=== PATIENT | female | born 1980 | race American Indian/Alaskan Native ===

== ENCOUNTER 2017-09-29 13:20 | Emergency (ER) | payer MEDICAID ==
--- NOTE | 2017-09-29 16:05 | Emergency Department Report ---
Chief Complaint: Neck Pain/Injury Stated Complaint: NECK PAIN - HPI History of Present Illness: 37-year-old female presents to the emergency department with a 2-3 day history of some neck pain, decreased sensation to the left arm and bilateral lower extremities, as well as some left upper arm weakness. Nontraumatic. - ROS Review of Systems: Patient is positive for weakness, numbness, neck pain Patient is negative for chest pain, vision change, shortness of breath, fever - Exam Vital Signs: Vital Signs 09/29/17 13:24 Temperature 98.4 F Pulse Rate 107 H Respiratory 18 Rate Blood Pressure 153/89 O2 Sat by Pulse 99 Oximetry Physical Exam: Patient is awake and alert. She does display some subjective decreased sensation to the left arm and right leg. She displays some weakness to the left upper extremity when compared to the right. MSE screening note: Focused history and physical exam performed. Due to findings the following was ordered: I have ordered a CBC, BMP, TSH, EKG, serum test. The patient will be moved to the main emergency department side as she may need some advanced imaging done. ED Disposition for MSE Condition: Stable
[2017-09-29 16:24] LABS: Basophils # (Auto) 0.1 K/mm3 (0.0-0.1); Eosinophils # (Auto) 0.1 K/mm3 (0.0-0.4); Eosinophils % (Auto) 1.7 % (0.0-4.3); Hematocrit 38.4 % (30.3-42.9); Hemoglobin 12.6 gm/dl (10.1-14.3); Lymphocytes # (Auto) 2.7 K/mm3 (1.2-5.4); Lymphocytes % (Auto) 33.2 % (13.4-35.0); Mean Corpuscular HGB Conc 33 % (30-34); Mean Corpuscular Hemoglobin 31 pg (28-32); Mean Corpuscular Volume 96 fl (79-97); Monocytes # (Auto) 0.7 K/mm3 (0.0-0.8); Monocytes % (Auto) 8.1 % (0.0-7.3); Platelet Count 385 K/mm3 (140-440); Red Blood Count 4.02 M/mm3 (3.65-5.03); Red Cell Distribution Width 12.9 % (13.2-15.2)
[2017-09-29 16:41] LABS: BUN/Creatinine Ratio 13; Blood Urea Nitrogen 8 mg/dL (7-17); Calcium 9.1 mg/dL (8.4-10.2); Hemolysis Index 2
[2017-09-29] MEDS ORDERED: SUBLIMAZE IV ONE (18:00)
[2017-09-29] MEDS ORDERED: ATIVAN ONE (19:10)
[2017-09-29] MEDS ORDERED: ATIVAN IV ONE (19:16)
[2017-09-29] MEDS ORDERED: DECADRON IV ONE (19:54)
--- NOTE | 2017-09-29 19:56 | Emergency Department Report ---
ED General Adult HPI - General Chief complaint: Neck Pain/Injury Stated complaint: NECK PAIN Time Seen by Provider: 09/29/17 16:41 Source: patient Mode of arrival: Ambulatory Limitations: No Limitations - History of Present Illness Initial comments: This is a 37-year-old female who is previously unknown to this provider. She does not have a primary care doctor. She reports no chronic medical conditions that she is aware of. Patient presents to the ER with a primary complaint of neck pain which is paracervical, left upper extremity, left lower extremity weakness, numbness. This has been going on for 3 days. It is constant. It does not radiate anywhere. Does not have exacerbating or relieving factors. Patient described a sensation of speaking slower than usual, although her speech is not slurred per se. Patient denies headache, chest pain, abdominal pain, shortness of breath. Patient denies saddle anesthesia, bladder or bowel retention/incontinence, patient also indicates that she thinks that she "passed out" a few days ago, indicates no pulmonary embolus or DVT risk factors, when further asked to clarify about this, she indicates that she fell asleep when speaking to one of her friends. She indicates that she did not actually lose consciousness but rather fell asleep. -: Gradual Location: neck, left, upper extremity, lower extremity Radiation: extremity Consistency: constant Improves with: none Worsens with: none Associated Symptoms: syncope, weakness. denies: confusion, chest pain, cough, diaphoresis, fever/chills, headaches, loss of appetite, malaise, nausea/vomiting , rash, shortness of breath - Related Data Allergies Allergy/AdvReac Type Severity Reaction Status Date / Time Sulfa (Sulfonamide Allergy Unknown Verified 09/29/17 13:29 Antibiotics) sulfamethoxazole Allergy Unknown Verified 09/29/17 13:29 [From Bactrim] trimethoprim [From Bactrim] Allergy Unknown Verified 09/29/17 13:29 ED Review of Systems ROS: Stated complaint: NECK PAIN Other details as noted in HPI ED Past Medical Hx - Past Medical History Previous Medical History?: No - Surgical History Additional Surgical History: breast reduction, - Social History Smoking Status: Current Every Day Smoker Substance Use Type: Alcohol ED Physical Exam - General Limitations: No Limitations General appearance: alert, in no apparent distress - Head Head exam: Present: atraumatic, normocephalic - Eye Eye exam: Present: normal appearance, EOMI. Absent: nystagmus - ENT ENT exam: Present: normal exam, normal orophraynx, mucous membranes moist, normal external ear exam - Neck Neck exam: Present: normal inspection, full ROM - Respiratory Respiratory exam: Present: normal lung sounds bilaterally. Absent: respiratory distress - Cardiovascular Cardiovascular Exam: Present: normal rhythm, tachycardia, normal heart sounds. Absent: systolic murmur, diastolic murmur, rubs, gallop - GI/Abdominal GI/Abdominal exam: Present: soft, normal bowel sounds. Absent: distended, tenderness, guarding, rebound, rigid, pulsatile mass - Extremities Exam Extremities exam: Present: normal inspection, full ROM, normal capillary refill. Absent: pedal edema, joint swelling, calf tenderness - Back Exam Back exam: Present: normal inspection, full ROM. Absent: tenderness, CVA tenderness (R), paraspinal tenderness, vertebral tenderness - Neurological Exam Neurological exam: Present: alert, oriented X3, CN II-XII intact, normal gait, motor sensory deficit (there is decreased sensation to light touch, pinprick, proprioception, left upper extremity, left lower extremity. It is 4 out of 5 strength left upper extremity, left lower extremity. Downgoing plantar reflexes noted in the bilateral upper and lower extremities.), reflexes normal, other (there is 5 out of 5 strength right upper extremity, right lower extremity , sensation intact to light touch right upper, right lower extremity, proprioception right upper, right lower extremity.) - Psychiatric Psychiatric exam: Present: normal affect, normal mood - Skin Skin exam: Present: warm, dry, intact, normal color. Absent: rash ED Course Vital Signs 09/29/17 13:24 Temperature 98.4 F Pulse Rate 107 H Respiratory 18 Rate Blood Pressure 153/89 O2 Sat by Pulse 99 Oximetry - Reevaluation(s) Reevaluation #1: 09/29/17 19:54 Differential diagnosis, including but not limited to: Multiple sclerosis, stroke , cervical radiculopathy, cervical compression syndrome Assessment and plan: 37-year-old female with a primary complaint of neck pain, left arm, left leg, weakness, numbness. Symptoms going on for the past 3 days. Therefore not an endovascular candidate, or TPA candidate. Emergent MRI of the brain and cervical spine ordered. Laboratory studies reviewed and are unremarkable. Patient required Ativan while in MRI. Her advanced imaging is pending at this time. 09/29/17 19:55 Reevaluation #2: 09/29/17 19:56 Patient indicates that her "syncope" was most likely falling asleep. There are no pulmonary embolus or DVT risk factors, she is low risk by well's criteria, her EKG is morphologically unremarkable, and thus far the patient has been observed in the ER for hours without clinical decompensation or falling asleep. In addition, she has not had any episodes of passing out. Reevaluation #3: 09/29/17 21:58 MR of the cervical spine demonstrates disc bulge on the thecal sac. MR of the brain is negative. Case discussed with neurosurgery at [facility], Dr. Jimenez who accepts patient as an ER to ER transfer. Dr Sommer in the ER at [facility] also accepts as a transfer ED Medical Decision Making - Lab Data Result diagrams: 09/29/17 16:13 09/29/17 16:13 Vital Signs 09/29/17 13:24 Temperature 98.4 F Pulse Rate 107 H Respiratory 18 Rate Blood Pressure 153/89 O2 Sat by Pulse 99 Oximetry Lab Results 09/29/17 09/29/17 09/29/17 Range/Units 16:13 16:13 16:13 WBC 8.0 (4.5-11.0) K/mm3 RBC 4.02 (3.65-5.03) M/mm3 Hgb 12.6 (10.1-14.3) gm/dl Hct 38.4 (30.3-42.9) % MCV 96 (79-97) fl MCH 31 (28-32) pg MCHC 33 (30-34) % RDW 12.9 L (13.2-15.2) % Plt Count 385 (140-440) K/mm3 Lymph % (Auto) 33.2 (13.4-35.0) % Ward % (Auto) 8.1 H (0.0-7.3) % Eos % (Auto) 1.7 (0.0-4.3) % Baso % (Auto) 1.0 (0.0-1.8) % Lymph # 2.7 (1.2-5.4) K/mm3 Ward # 0.7 (0.0-0.8) K/mm3 Eos # 0.1 (0.0-0.4) K/mm3 Baso # 0.1 (0.0-0.1) K/mm3 Seg Neutrophils % 56.0 (40.0-70.0) % Seg Neutrophils # 4.5 (1.8-7.7) K/mm3 Sodium 138 (137-145) mmol/L Potassium 3.6 (3.6-5.0) mmol/L Chloride 98.4 (98-107) mmol/L Carbon Dioxide 27 (22-30) mmol/L Anion Gap 16 mmol/L BUN 8 (7-17) mg/dL Creatinine 0.6 L (0.7-1.2) mg/dL Estimated GFR > 60 ml/min BUN/Creatinine Ratio 13 % Glucose 87 (65-100) mg/dL Calcium 9.1 (8.4-10.2) mg/dL TSH 1.920 (0.270-4.200) mlU/mL HCG, Qual (Negative) 09/29/17 Range/Units 16:13 WBC (4.5-11.0) K/mm3 RBC (3.65-5.03) M/mm3 Hgb (10.1-14.3) gm/dl Hct (30.3-42.9) % MCV (79-97) fl MCH (28-32) pg MCHC (30-34) % RDW (13.2-15.2) % Plt Count (140-440) K/mm3 Lymph % (Auto) (13.4-35.0) % Ward % (Auto) (0.0-7.3) % Eos % (Auto) (0.0-4.3) % Baso % (Auto) (0.0-1.8) % Lymph # (1.2-5.4) K/mm3 Ward # (0.0-0.8) K/mm3 Eos # (0.0-0.4) K/mm3 Baso # (0.0-0.1) K/mm3 Seg Neutrophils % (40.0-70.0) % Seg Neutrophils # (1.8-7.7) K/mm3 Sodium (137-145) mmol/L Potassium (3.6-5.0) mmol/L Chloride (98-107) mmol/L Carbon Dioxide (22-30) mmol/L Anion Gap mmol/L BUN (7-17) mg/dL Creatinine (0.7-1.2) mg/dL Estimated GFR ml/min BUN/Creatinine Ratio % Glucose (65-100) mg/dL Calcium (8.4-10.2) mg/dL TSH (0.270-4.200) mlU/mL HCG, Qual Negative (Negative) - EKG Data -: EKG Interpreted by Ia - EKG Data When compared to previous EKG there are: previous EKG unavailable 09/29/17 19:55 Sinus, 78 bpm, normal axis, normal intervals, not morphologically consistent with ST elevation myocardial infarction - Radiology Data Radiology results: report reviewed, image reviewed Print Report Referring Physician: CABRERA KEY Patient Name: SAMANTHA RICKETTS Date of : 1980 Sex: Female Report Date: 2017-09-29 Report Status: [place] [address] Magnetic Resonance Report Signed Patient: SAMANTHA RICKETTS MR#: [id number] : 1980 Acct:[id number] Age/Sex: 37 / F ADM Date: 09/29/17 Loc: ED Attending Dr: Ordering Physician: CABRERA KEY MD Date of Service: 09/29/17 Procedure(s): MR cervical spine wo con Accession Number(s): [id number] cc: CABRERA KEY MD FINAL REPORT PROCEDURE: MR CERVICAL SPINE WO CON TECHNIQUE: Computerized tomography of the cervical spine was performed from the skull base to T1 without contrast material. HISTORY: slurred speech, left sides weakness COMPARISON: No prior studies are available for comparison. FINDINGS: Alignment is satisfactory. There is no fracture. Odontoid process is intact. C1-2: No significant abnormality. C2-3: No disc herniation. No canal stenosis or foraminal encroachment. C3-4: No disc herniation. No canal stenosis or foraminal encroachment. C4-5: No disc herniation. No canal stenosis or foraminal encroachment. C5-6: No disc herniation. Mild facet spurring. No canal stenosis or foraminal encroachment. C6-7: Disc bulge impressing upon the thecal sac. C7-T1: No significant abnormality. Other: No additional findings. IMPRESSION: Disc bulge at C6-7. No disc herniation. No canal stenosis.. Transcribed By: BRJoaquin Dictated By: DANIELLE SIU MD Electronically Authenticated By: DANIELLE SIU MD Signed Date/Time: 09/29/171635 DD/ 35 TD/TT: 09/29/171635 Critical care attestation.: If time is entered above; I have spent that time in minutes in the direct care of this critically ill patient, excluding procedure time. ED Disposition Condition: Stable Referrals: PRIMARY CARE, [Primary Care Provider] - 3-5 Days
--- NOTE | 2017-09-29 20:40 | Magnetic Resonance Report ---
FINAL REPORT PROCEDURE: MR CERVICAL SPINE WO CON TECHNIQUE: Computerized tomography of the cervical spine was performed from the skull base to T1 without contrast material. HISTORY: slurred speech, left sides weakness COMPARISON: No prior studies are available for comparison. FINDINGS: Alignment is satisfactory. There is no fracture. Odontoid process is intact. C1-2: No significant abnormality. C2-3: No disc herniation. No canal stenosis or foraminal encroachment. C3-4: No disc herniation. No canal stenosis or foraminal encroachment. C4-5: No disc herniation. No canal stenosis or foraminal encroachment. C5-6: No disc herniation. Mild facet spurring. No canal stenosis or foraminal encroachment. C6-7: Disc bulge impressing upon the thecal sac. C7-T1: No significant abnormality. Other: No additional findings. IMPRESSION: Disc bulge at C6-7. No disc herniation. No canal stenosis..
--- NOTE | 2017-09-29 21:52 | Magnetic Resonance Report ---
FINAL REPORT PROCEDURE: MR BRAIN WO CON TECHNIQUE: Magnetic resonance imaging of the brain was performed without contrast material. HISTORY: slurred speech, left sides weakness COMPARISON: No prior studies are available for comparison. FINDINGS: Skull base and calvarium: Normal. Paranasal sinuses: The visualized paranasal sinuses are clear. Cerebellum: No evidence of hemorrhage, ischemia or mass. Brainstem: No evidence of hemorrhage, ischemia or mass. Cerebrum: No evidence of hemorrhage, ischemia or mass. Ventricles: Normal in size and morphology for the patient's age. Pituitary gland and sella: Normal. Globes and orbits: Normal. Vasculature: Normal arterial and venous flow voids. Other: None. IMPRESSION: Normal Examination
[2017-09-30 00:51] VITALS: BP 115/72
== END 2017-09-30 01:00 | disposition other institution (70) ==
LOC: ED 13:20
DX: M50.30 Other cervical disc degeneration, unspecified cervical region (principal); R55 Syncope and collapse; R53.1 Weakness; F17.200 Nicotine dependence, unspecified, uncomplicated; Z88.2 Allergy status to sulfonamides; Z88.8 Allergy status to other drugs, medicaments and biological substances
CPT/HCPCS: 36415; 70551; 72141; 80048; 84443; 84703; 85025; 93005; 93010; 96374; 96375; 99285; J1100; J2060; J3010